=== PATIENT | female | born 1950 | race Caucasian/White ===

== ENCOUNTER → 2018-09-24 | Outpatient (CLI) | payer OTHER, BC | LOC: ZCOL.LAB 16:09 | DX: I87.8 Other specified disorders of veins (principal) ==

== ENCOUNTER → 2021-03-26 | Outpatient (CLI) | payer BC | LOC: ZCOL.LAB 15:51 | DX: I83.009 Varicose veins of unspecified lower extremity with ulcer of unspecified site (principal) ==

== ENCOUNTER → 2021-06-16 | Outpatient (CLI) | payer BC | LOC: ZCOL.LAB 16:27 | DX: B99.9 Unspecified infectious disease (principal) ==

== ENCOUNTER → 2021-10-11 | Outpatient (CLI) | payer BC | LOC: ZCOL.LAB 16:02 | DX: L97.919 Non-pressure chronic ulcer of unspecified part of right lower leg with unspecified severity (principal) ==